=== PATIENT | female | born 1955 | race Caucasian/White ===

== ENCOUNTER 2023-02-01 00:23 | Inpatient (IN) ==
[2023-02-01 00:52] LABS: ABS Lymphocytes 1.1 10^3/uL (1.0-4.8); ABS Monocytes 0.6 10^3/uL (0.0-0.9); ABS Nucleated RBC 0.01 10^3/ul; Eosinophil % 0.1 %; Hematocrit 31.1 % (35-45); Hemoglobin 10.6 g/dL (11.5-14.3); Lymphocyte % 12.2 %; Mean Corpuscular Hemoglobin 28.4 pg (27-33); Mean Corpuscular Volume 83.6 fL (80-97); Mean Platelet Volume 8.5 fL (7.5-11.2); Nucleated Red Blood Cells % 0.1 /100 WBC (0.0-0.4); Platelet Count 277 10^3/uL (150-450); Red Blood Count 3.73 10^6/uL (3.63-4.92); Red Cell Distribution Width 15.3 % (12-17); White Blood Count 8.7 10^3/uL (3.8-11.8)
[2023-02-01] MEDS ORDERED: Ondansetron 4 mg VIAL 2 MG/ML 2 ml VIAL IV PRN ×3 (00:56→13:16)
[2023-02-01 01:01] LABS: Albumin/Globulin Ratio 1.3 (1-3); Calcium 8.7 mg/dL (8.6-10.3); Creatinine, Serum 2.07 mg/dL (0.51-0.95); Globulin 2.4 g/dL (2-4); Magnesium 1.8 mg/dL (1.9-2.7); Potassium 3.8 mmol/L (3.5-5.0); Total Bilirubin 0.6 mg/dL (0.2-1.0); Total Protein 5.4 g/dL (6.4-8.9); eGFR CKD-EPI 25.5 (>60)
[2023-02-01] MEDS ORDERED: Heparin 5000 UNITS/ML 1 mL VIAL SUBCUT ONE (01:32)
[2023-02-01] MEDS ORDERED: Morphine 2 MG/ML SYRINGE IV PRN (01:44)
[2023-02-01] MEDS ORDERED: fentaNYL 100 mcg/2 ml 50 MCG/ML VIAL IV SLOW PU PRN ×3 (01:54→02:05)
[2023-02-01 02:12] LABS: Urine Appearance Clear; Urine Bilirubin Negative (Negative); Urine Blood Negative (Negative); Urine Color Yellow; Urine Glucose Negative (Negative); Urine Ketones Trace (Negative); Urine Nitrite Negative (Negative); Urine Protein Negative (Negative); Urine Specific Gravity 1.014 (1.002-1.030); Urine Urobilinogen Positive (Negative)
[2023-02-01] MEDS ORDERED: HYDROmorphone 1 MG/1 ML SYRINGE IV SLOW PU PRN (02:14)
[2023-02-01] MEDS: Acetaminophen IV 1 GM/100ML 1,000 MG/100 ML BAG IV PRN ×2 (02:15→21:29)
[2023-02-01 02:19] LABS: INR 1.14 (0.88-1.18)
[2023-02-01] MEDS: HYDROmorphone 1 MG/1 ML SYRINGE IV SLOW PU PRN ×3 (03:45→16:59)
[2023-02-01] MEDS: Sodium Bicarb 650 mg (ANTACID) TAB PO SCH ×3 (07:56→21:30)
[2023-02-01] MEDS: buPROPion SR 200 mg TAB.SR PO SCH ×2 (07:56→21:30)
[2023-02-01] MEDS ORDERED: Clindamycin 900 MG/50 **NS BAG 900 MG/50 ML BAG ONE (12:25)
[2023-02-01] MEDS ORDERED: fentaNYL 100 mcg/2 ml 50 MCG/ML VIAL IV PRN ×2 (13:06→13:16)
[2023-02-01] MEDS ORDERED: oxyCODONE/Acetamin 5/325 mg TAB PO PRN ×2 (13:06→13:16)
[2023-02-01] MEDS ORDERED: Naloxone 0.4 mg VIAL 0.4 mg/ml 1 ml VIAL IV PRN ×2 (13:06→13:16)
[2023-02-01] MEDS ORDERED: HYDROmorphone 1 MG/1 ML SYRINGE ONE ×2 (13:47→16:56)
[2023-02-01] MEDS ORDERED: HYDROmorphone 0.5 MG/0.5 ML SYRINGE IV SLOW PU PRN (13:59)
[2023-02-01] MEDS ORDERED: Propofol 10 MG/ML 20 ML BTL ONE (16:57)
[2023-02-02] MEDS: HYDROmorphone 1 MG/1 ML SYRINGE IV SLOW PU PRN ×2 (01:17→14:38)
[2023-02-02 06:01] LABS: Hematocrit 31.3 % (35-45); Hemoglobin 10.5 g/dL (11.5-14.3); Mean Corpuscular Hemoglobin 28.4 pg (27-33); Mean Corpuscular Hgb Conc 33.5 g/dL (31-36); Mean Corpuscular Volume 84.6 fL (80-97); Mean Platelet Volume 8.4 fL (7.5-11.2); Platelet Count 273 10^3/uL (150-450); Red Blood Count 3.69 10^6/uL (3.63-4.92); Red Cell Distribution Width 15.5 % (12-17); White Blood Count 6.9 10^3/uL (3.8-11.8)
[2023-02-02 06:17] LABS: Calcium 8.6 mg/dL (8.6-10.3); Creatinine, Serum 2.33 mg/dL (0.51-0.95); Magnesium 1.9 mg/dL (1.9-2.7); Potassium 4.5 mmol/L (3.5-5.0); eGFR CKD-EPI 22.1 (>60)
[2023-02-02 06:22] LABS: Calcium (PTH Intact) 8.4 mg/dL (8.6-10.3)
[2023-02-02] MEDS ORDERED: Clindamycin 900 MG/50 **NS BAG 900 MG/50 ML BAG ONE (07:41)
[2023-02-02] MEDS ORDERED: Lidocaine 1% w EPI 1:200,000 SDV 30 ML VIAL ONE (07:41)
[2023-02-02] MEDS ORDERED: Lidocaine 2% PF 5 ML VIAL ONE (07:52)
[2023-02-02] MEDS ORDERED: Propofol 10 MG/ML 20 ML BTL ONE (07:52)
[2023-02-02] MEDS ORDERED: Rocuronium 50 mg VIAL 10 mg/ml 5 ml VIAL (50 mg) ONE (07:52)
[2023-02-02] MEDS ORDERED: fentaNYL 100 mcg/2 ml 50 MCG/ML VIAL ONE ×2 (07:52→13:21)
[2023-02-02] MEDS ORDERED: Midazolam 2 mg/2 ml VIAL 1 mg/ml 2 ml VIAL (2 mg) ONE (07:53)
[2023-02-02] MEDS ORDERED: Ondansetron 4 mg VIAL 2 MG/ML 2 ml VIAL ONE (09:02)
[2023-02-02] MEDS ORDERED: Dexamethasone IV 4 MG/ML VIAL 1 ml VIAL ONE (09:02)
[2023-02-02] MEDS ORDERED: HYDROmorphone 0.5 MG/0.5 ML SYRINGE ONE ×2 (09:15→09:59)
[2023-02-02] MEDS ORDERED: Naloxone 0.4 mg VIAL 0.4 mg/ml 1 ml VIAL IV PRN (13:26)
[2023-02-02] MEDS ORDERED: Ondansetron 4 mg VIAL 2 MG/ML 2 ml VIAL IV PRN (13:26)
[2023-02-02] MEDS ORDERED: Metoclopramide 5 MG/ML VIAL (10 mg) IV PRN (13:26)
[2023-02-02] MEDS ORDERED: HYDROcodone/ACETAMIN 5/325 mg TAB PO PRN (13:26)
[2023-02-02] MEDS: fentaNYL 100 mcg/2 ml 50 MCG/ML VIAL IV PRN ×4 (13:29→13:42)
[2023-02-02] MEDS ORDERED: HYDROcodone/ACETAMIN 5/325 mg TAB ONE (13:45)
[2023-02-02] MEDS ORDERED: Polyethylene Glycol 3350 17 GM PACKET PO PRN (14:29)
[2023-02-02] MEDS ORDERED: Magnesium Hydroxide LIQ 30 ML UDC PO PRN (14:29)
[2023-02-02] MEDS ORDERED: Senna TAB 8.6 mg TAB PO PRN (14:29)
[2023-02-02] MEDS: Sodium Bicarb 650 mg (ANTACID) TAB PO SCH ×3 (14:38→20:44)
[2023-02-02] MEDS: ATOMOXETINE 100 MG PO SCH (14:42)
[2023-02-02] MEDS: buPROPion SR 200 mg TAB.SR PO SCH ×2 (14:43→20:44)
[2023-02-02] MEDS ORDERED: Enoxaparin 40 MG/0.4 ML SYR SUBCUT SCH (17:00)
[2023-02-02] MEDS: Clindamycin 600 MG/NS BAG IV SCH (18:08)
[2023-02-02] MEDS: Magnesium Hydroxide LIQ 30 ML UDC PO SCH (20:43)
[2023-02-03] MEDS: Clindamycin 600 MG/NS BAG IV SCH ×2 (00:48→08:48)
[2023-02-03] MEDS: HYDROmorphone 1 MG/1 ML SYRINGE IV SLOW PU PRN (06:05)
[2023-02-03 08:14] LABS: Hematocrit 24.1 % (35-45); Hemoglobin 8.3 g/dL (11.5-14.3); Mean Corpuscular Hemoglobin 28.8 pg (27-33); Mean Corpuscular Hgb Conc 34.3 g/dL (31-36); Mean Corpuscular Volume 84.1 fL (80-97); Mean Platelet Volume 8.4 fL (7.5-11.2); Platelet Count 260 10^3/uL (150-450); Red Blood Count 2.86 10^6/uL (3.63-4.92); Red Cell Distribution Width 15.5 % (12-17); White Blood Count 7.8 10^3/uL (3.8-11.8)
[2023-02-03 08:40] LABS: Calcium 8.3 mg/dL (8.6-10.3); Creatinine, Serum 2.44 mg/dL (0.51-0.95); Potassium 4.6 mmol/L (3.5-5.0); eGFR CKD-EPI 20.9 (>60)
[2023-02-03] MEDS: ATOMOXETINE 100 MG PO SCH (08:51)
[2023-02-03] MEDS: buPROPion SR 200 mg TAB.SR PO SCH ×2 (08:53→21:45)
[2023-02-03] MEDS: Sodium Bicarb 650 mg (ANTACID) TAB PO SCH ×3 (08:53→21:46)
[2023-02-03] MEDS: Magnesium Hydroxide LIQ 30 ML UDC PO SCH ×2 (08:53→21:46)
[2023-02-03] MEDS: Enoxaparin 30 MG/0.3 ML SYR SUBCUT SCH (08:54)
[2023-02-03 13:53] LABS: % Iron Saturation 8 % (15-55); .Transferrin 184 mg/dL (203-362); Iron < 20 ug/dL (50-212); Total Iron Binding Capacity 258 mcg/dL (250-450); Unsaturated Iron Binding 238 ug/dL
[2023-02-03 14:13] LABS: Ferritin 42.4 ng/mL (11-307)
[2023-02-03] MEDS: Ferric Gluconate IV 250 MG in NS 0.9% 250 ml 200 ML IVPB SCH (15:01)
[2023-02-04 06:29] LABS: Hematocrit 22.5 % (35-45); Hemoglobin 7.1 g/dL (11.5-14.3); Mean Corpuscular Hemoglobin 28.6 pg (27-33); Mean Corpuscular Hgb Conc 31.7 g/dL (31-36); Mean Corpuscular Volume 90.3 fL (80-97); Mean Platelet Volume 9.1 fL (7.5-11.2); Platelet Count 144 10^3/uL (150-450); Red Blood Count 2.49 10^6/uL (3.63-4.92); Red Cell Distribution Width 15.6 % (12-17); White Blood Count 5.4 10^3/uL (3.8-11.8)
[2023-02-04 06:34] LABS: Potassium 4.5 mmol/L (3.5-5.0)
[2023-02-04 06:48] LABS: Calcium 8.1 mg/dL (8.6-10.3)
[2023-02-04 06:52] LABS: Creatinine, Serum 2.48 mg/dL (0.51-0.95); eGFR CKD-EPI 20.5 (>60)
[2023-02-04] MEDS ORDERED: Senna TAB 8.6 mg TAB PO PRN (07:14)
[2023-02-04] MEDS ORDERED: Polyethylene Glycol 3350 17 GM PACKET PO PRN (07:15)
[2023-02-04] MEDS: Ferric Gluconate IV 250 MG in NS 0.9% 250 ml 200 ML IVPB SCH (08:04)
[2023-02-04] MEDS: Magnesium Hydroxide LIQ 30 ML UDC PO SCH ×2 (09:19→22:27)
[2023-02-04] MEDS: ATOMOXETINE 100 MG PO SCH (09:19)
[2023-02-04] MEDS: Sodium Bicarb 650 mg (ANTACID) TAB PO SCH ×3 (09:20→22:25)
[2023-02-04] MEDS: buPROPion SR 200 mg TAB.SR PO SCH ×2 (09:20→22:25)
[2023-02-04] MEDS: Enoxaparin 30 MG/0.3 ML SYR SUBCUT SCH (10:40)
[2023-02-04 11:02] LABS: Phosphorus 3.9 mg/dL (2.5-5.0)
[2023-02-04 12:05] LABS: Hematocrit 20.5 % (35-45); Hemoglobin 6.9 g/dL (11.5-14.3); Mean Corpuscular Hemoglobin 28.4 pg (27-33); Mean Corpuscular Hgb Conc 33.6 g/dL (31-36); Mean Corpuscular Volume 84.6 fL (80-97); Mean Platelet Volume 8.5 fL (7.5-11.2); Platelet Count 228 10^3/uL (150-450); Red Blood Count 2.43 10^6/uL (3.63-4.92); Red Cell Distribution Width 15.1 % (12-17)
[2023-02-04 22:06] LABS: Hemoglobin 8.2 g/dL (11.5-14.3); Mean Corpuscular Hemoglobin 29.1 pg (27-33); Mean Corpuscular Hgb Conc 34.2 g/dL (31-36); Mean Corpuscular Volume 85.2 fL (80-97); Mean Platelet Volume 8.3 fL (7.5-11.2); Platelet Count 248 10^3/uL (150-450); Red Blood Count 2.82 10^6/uL (3.63-4.92); Red Cell Distribution Width 15.2 % (12-17); White Blood Count 6.7 10^3/uL (3.8-11.8)
[2023-02-05 07:56] LABS: Hematocrit 23.3 % (35-45); Hemoglobin 7.9 g/dL (11.5-14.3); Mean Corpuscular Hemoglobin 29.3 pg (27-33); Mean Platelet Volume 8.3 fL (7.5-11.2); Platelet Count 248 10^3/uL (150-450); Red Blood Count 2.71 10^6/uL (3.63-4.92); Red Cell Distribution Width 15.2 % (12-17); White Blood Count 5.8 10^3/uL (3.8-11.8)
[2023-02-05 08:12] LABS: Calcium 8.3 mg/dL (8.6-10.3); Creatinine, Serum 2.1 mg/dL (0.51-0.95); Potassium 4.5 mmol/L (3.5-5.0)
[2023-02-05] MEDS: Ferric Gluconate IV 250 MG in NS 0.9% 250 ml 200 ML IVPB SCH (08:25)
[2023-02-05] MEDS: ATOMOXETINE 100 MG PO SCH (13:06)
[2023-02-05] MEDS: buPROPion SR 200 mg TAB.SR PO SCH ×2 (13:06→20:57)
[2023-02-05] MEDS: Sodium Bicarb 650 mg (ANTACID) TAB PO SCH ×3 (13:10→20:58)
[2023-02-05] MEDS: Magnesium Hydroxide LIQ 30 ML UDC PO SCH ×2 (13:10→20:59)
[2023-02-05] MEDS: Enoxaparin 30 MG/0.3 ML SYR SUBCUT SCH (14:43)
[2023-02-05 16:14] LABS: ABS Basophils 0.1 10^3/uL (0.0-0.1); ABS Eosinophils 0.2 10^3/uL (0.0-0.5); ABS Lymphocytes 1.7 10^3/uL (1.0-4.8); ABS Monocytes 0.6 10^3/uL (0.0-0.9); ABS Neutrophils 5.1 10^3/uL (1.5-7.6); ABS Nucleated RBC 0.01 10^3/ul; Eosinophil % 2.1 %; Hematocrit 27.6 % (35-45); Hemoglobin 9.4 g/dL (11.5-14.3); Lymphocyte % 22.2 %; Mean Corpuscular Hemoglobin 29.5 pg (27-33); Mean Corpuscular Hgb Conc 34.2 g/dL (31-36); Mean Corpuscular Volume 86.3 fL (80-97); Mean Platelet Volume 7.9 fL (7.5-11.2); Nucleated Red Blood Cells % 0.1 /100 WBC (0.0-0.4); Platelet Count 355 10^3/uL (150-450); Red Cell Distribution Width 15.3 % (12-17); White Blood Count 7.5 10^3/uL (3.8-11.8)
[2023-02-06 08:16] LABS: Hematocrit 27.8 % (35-45); Hemoglobin 9.6 g/dL (11.5-14.3); Mean Corpuscular Hemoglobin 29.7 pg (27-33); Mean Corpuscular Hgb Conc 34.4 g/dL (31-36); Mean Corpuscular Volume 86.2 fL (80-97); Mean Platelet Volume 7.9 fL (7.5-11.2); Platelet Count 362 10^3/uL (150-450); Red Blood Count 3.23 10^6/uL (3.63-4.92); Red Cell Distribution Width 15.8 % (12-17)
[2023-02-06 08:33] LABS: Calcium 8.7 mg/dL (8.6-10.3); Creatinine, Serum 2.13 mg/dL (0.51-0.95); Magnesium 2.3 mg/dL (1.9-2.7); Potassium 4.5 mmol/L (3.5-5.0); eGFR CKD-EPI 24.6 (>60)
[2023-02-06] MEDS: buPROPion SR 200 mg TAB.SR PO SCH ×2 (09:31→20:25)
[2023-02-06] MEDS: ATOMOXETINE 100 MG PO SCH (09:32)
[2023-02-06] MEDS: Magnesium Hydroxide LIQ 30 ML UDC PO SCH ×2 (09:32→20:26)
[2023-02-06] MEDS: Sodium Bicarb 650 mg (ANTACID) TAB PO SCH ×3 (09:32→20:26)
[2023-02-06] MEDS: Ferric Gluconate IV 250 MG in NS 0.9% 250 ml 200 ML IVPB SCH (09:33)
[2023-02-06] MEDS: Enoxaparin 30 MG/0.3 ML SYR SUBCUT SCH (14:56)
[2023-02-07 06:11] LABS: Calcium 8.7 mg/dL (8.6-10.3); Creatinine, Serum 2.14 mg/dL (0.51-0.95); Potassium 4.5 mmol/L (3.5-5.0); eGFR CKD-EPI 24.5 (>60)
[2023-02-07 06:29] LABS: Hematocrit 25.3 % (35-45); Hemoglobin 8.6 g/dL (11.5-14.3); Mean Corpuscular Hemoglobin 29.6 pg (27-33); Mean Corpuscular Hgb Conc 34.1 g/dL (31-36); Mean Corpuscular Volume 86.7 fL (80-97); Mean Platelet Volume 7.5 fL (7.5-11.2); Platelet Count 322 10^3/uL (150-450); Red Blood Count 2.91 10^6/uL (3.63-4.92); Red Cell Distribution Width 15.7 % (12-17); White Blood Count 5.5 10^3/uL (3.8-11.8)
[2023-02-07] MEDS: Sodium Bicarb 650 mg (ANTACID) TAB PO SCH ×3 (08:57→21:09)
[2023-02-07] MEDS: Ferric Gluconate IV 250 MG in NS 0.9% 250 ml 200 ML IVPB SCH (08:57)
[2023-02-07] MEDS: buPROPion SR 200 mg TAB.SR PO SCH ×2 (08:58→21:09)
[2023-02-07] MEDS: Magnesium Hydroxide LIQ 30 ML UDC PO SCH ×2 (08:58→21:00)
[2023-02-07] MEDS: Lactulose 30 ml UDC PO SCH ×3 (11:13→21:00)
[2023-02-07] MEDS: Enoxaparin 30 MG/0.3 ML SYR SUBCUT SCH (13:12)
[2023-02-07] MEDS: ATOMOXETINE 100 MG PO SCH (18:03)
[2023-02-08 06:46] LABS: Calcium 8.4 mg/dL (8.6-10.3); Creatinine, Serum 2.32 mg/dL (0.51-0.95); Potassium 4.3 mmol/L (3.5-5.0); eGFR CKD-EPI 22.2 (>60)
[2023-02-08] MEDS: Lactulose 30 ml UDC PO SCH ×3 (07:16→23:05)
[2023-02-08] MEDS: Magnesium Hydroxide LIQ 30 ML UDC PO SCH ×2 (07:17→23:05)
[2023-02-08] MEDS: buPROPion SR 200 mg TAB.SR PO SCH ×2 (09:24→23:03)
[2023-02-08] MEDS: Sodium Bicarb 650 mg (ANTACID) TAB PO SCH ×3 (09:25→23:04)
[2023-02-08] MEDS: ATOMOXETINE 100 MG PO SCH (09:28)
[2023-02-08] MEDS: Enoxaparin 30 MG/0.3 ML SYR SUBCUT SCH (13:54)
[2023-02-09 06:15] LABS: Calcium 8.7 mg/dL (8.6-10.3); Creatinine, Serum 2.39 mg/dL (0.51-0.95); Potassium 4.5 mmol/L (3.5-5.0); eGFR CKD-EPI 21.4 (>60)
[2023-02-09] MEDS: Lactulose 30 ml UDC PO SCH ×3 (07:49→21:00)
[2023-02-09] MEDS: buPROPion SR 200 mg TAB.SR PO SCH ×2 (11:21→20:56)
[2023-02-09] MEDS: Sodium Bicarb 650 mg (ANTACID) TAB PO SCH ×3 (11:22→20:56)
[2023-02-09] MEDS: ATOMOXETINE 100 MG PO SCH (11:22)
[2023-02-09] MEDS: Enoxaparin 30 MG/0.3 ML SYR SUBCUT SCH (14:28)
[2023-02-10 05:41] LABS: ABS Eosinophils 0.1 10^3/uL (0.0-0.5); ABS Lymphocytes 1.4 10^3/uL (1.0-4.8); ABS Monocytes 0.5 10^3/uL (0.0-0.9); ABS Neutrophils 3.8 10^3/uL (1.5-7.6); ABS Nucleated RBC 0.01 10^3/ul; Eosinophil % 2.5 %; Hematocrit 27.9 % (35-45); Hemoglobin 9.4 g/dL (11.5-14.3); Lymphocyte % 23.4 %; Mean Corpuscular Hemoglobin 29.9 pg (27-33); Mean Corpuscular Hgb Conc 33.6 g/dL (31-36); Mean Corpuscular Volume 88.9 fL (80-97); Mean Platelet Volume 7.6 fL (7.5-11.2); Nucleated Red Blood Cells % 0.1 /100 WBC (0.0-0.4); Platelet Count 417 10^3/uL (150-450); Red Blood Count 3.14 10^6/uL (3.63-4.92); Red Cell Distribution Width 16.5 % (12-17); White Blood Count 5.8 10^3/uL (3.8-11.8)
[2023-02-10 06:03] LABS: Calcium 8.4 mg/dL (8.6-10.3); Creatinine, Serum 2.18 mg/dL (0.51-0.95); Potassium 4.2 mmol/L (3.5-5.0); eGFR CKD-EPI 23.9 (>60)
[2023-02-10] MEDS: Lactulose 30 ml UDC PO SCH ×2 (07:49→13:53)
[2023-02-10] MEDS: buPROPion SR 200 mg TAB.SR PO SCH (08:19)
[2023-02-10] MEDS: Sodium Bicarb 650 mg (ANTACID) TAB PO SCH ×2 (08:19→13:53)
[2023-02-10] MEDS ORDERED: ATOMOXETINE 100 MG PO SCH (09:00)
[2023-02-10 12:01] LABS: Rapid COVID-19 Molecular Undetected (Undetected)
[2023-02-10] MEDS: Enoxaparin 30 MG/0.3 ML SYR SUBCUT SCH (13:54)
[2023-02-10 14:22] VITALS: BP 111/58
== END 2023-02-10 14:00 | disposition swing bed (61) | DRG 481 ==
LOC: ED 00:23 → SUATTDRO 00:59 → EDHOLD 00:59 → SSU 02:10
PROVIDERS: ADMIT Internal Medicine; ATTEND Internal Medicine